=== PATIENT | male | born 1950 | race Two or more races ===

== ENCOUNTER 2023-05-30 01:32 | Inpatient (IN) | payer OTHER ==
[2023-05-30 02:33] LABS: HEMATOCRIT 28.5 % (35.4-49); HEMOGLOBIN 8.8 GM/dL (11.7-16.9); MEAN CELL VOLUME 80.6 fl (80-96); MEAN PLT VOLUME 7.6 fl (7.5-11.1); PLATELET COUNT 379 10^3/uL (134-434); RBC 3.54 M/mm3 (4.00-5.60); WHITE BLOOD COUNT 23.2 K/mm3 (4.0-10.0)
[2023-05-30 02:39] LABS: INR 1.51 (0.83-1.09); PROTHROMBIN TIME (PATIENT) 17.5 SEC (9.7-13.0)
[2023-05-30 02:42] LABS: ACTIVATED PTT 30.8 SECONDS (25.2-36.5)
[2023-05-30 02:44] LABS: EPI CELLS 8 /uL (0-25.1); HYALINE CASTS 4 /uL (0-3.1); URINE APPEARANCE CLEAR; URINE BACTERIA 4 /uL (0-1359); URINE BILIRUBIN NEGATIVE (NEGATIVE); URINE COLOR YELLOW; URINE GLUCOSE (UA) NEGATIVE (NEGATIVE); URINE KETONE NEGATIVE (NEGATIVE); URINE LEUK ESTERASE NEGATIVE (NEGATIVE); URINE NITRITE NEGATIVE (NEGATIVE); URINE PROTEIN 1+ (NEGATIVE); URINE RBC 28 /uL (0-23.9); URINE UROBILINOGEN 0.2 mg/dL (0.2-1.0); URINE WBC 7 /uL (0-25.8)
[2023-05-30 02:55] LABS: POTASSIUM 3.6 mmol/L (3.5-5.1)
[2023-05-30 02:56] LABS: CALCIUM 8.2 mg/dL (8.5-10.1)
[2023-05-30 02:57] LABS: ALBUMIN 1.7 g/dl (3.4-5.0); BLOOD UREA NITROGEN 49.4 mg/dL (7-18)
[2023-05-30 03:00] LABS: CREATININE 3.2 mg/dL (0.55-1.3)
[2023-05-30 03:02] LABS: BILIRUBIN,TOTAL 0.4 mg/dL (0.2-1); TOT PROT 5.7 g/dl (6.4-8.2)
[2023-05-30 05:25] LABS: ANISOCYTOSIS 3+; MACROCYTOSIS 0; OVALOCYTE 1+; ROULEAU 1+; TARGET CELLS 1+
[2023-05-30] MEDS ORDERED: SODIUM CHLORIDE 0.9% 500 ML INFUS.BAG IV ONE (07:10)
[2023-05-30] MEDS ORDERED: PIPERACILLIN/TAZOB 4.5 GM 4.5 GM in DEXTROSE 5%-WATER 100 ML IVPB ONE (08:35)
[2023-05-30] MEDS ORDERED: ACETAMINOPHEN 1000 MG/100 ML BAG IVPB ONE (10:37)
[2023-05-30] MEDS ORDERED: PIPERACILLIN/TAZOB 4.5 GM 4.5 GM/100 ML BAG IVPB ONE (10:37)
[2023-05-30] MEDS ORDERED: ACETAMINOPHEN INJECTION 100 ML IVPB ONE (10:38)
[2023-05-30] MEDS ORDERED: SODIUM CHLORIDE 250 ML IV PRN (10:51)
[2023-05-30] MEDS ORDERED: EPOETIN ALFA-EPBX 2,000 UNIT/ML VIAL IVPUSH ONE (16:15)
[2023-05-30] MEDS ORDERED: VANCOMYCIN ORAL SOLUTION 125 MG/2.5 ML PO SCH (18:00)
[2023-05-30] MEDS: VANCOMYCIN ORAL SOLUTION 125 MG/2.5 ML GT SCH ×2 (20:05→23:54)
[2023-05-31] MEDS: VANCOMYCIN ORAL SOLUTION 125 MG/2.5 ML GT SCH ×3 (05:15→17:25)
[2023-05-31 10:03] LABS: HEMATOCRIT 27.9 % (35.4-49); HEMOGLOBIN 8.7 GM/dL (11.7-16.9); MCH 25.3 pg (25.7-33.7); MEAN CELL VOLUME 81.6 fl (80-96); MEAN PLT VOLUME 8.1 fl (7.5-11.1); PLATELET COUNT 374 10^3/uL (134-434); RBC 3.42 M/mm3 (4.00-5.60); RDW 19.8 % (11.9-15.9); WHITE BLOOD COUNT 25.9 K/mm3 (4.0-10.0)
[2023-05-31 10:35] LABS: POTASSIUM 3.7 mmol/L (3.5-5.1)
[2023-05-31 10:58] LABS: ANISOCYTOSIS 1+; MACROCYTOSIS 0
[2023-05-31 11:02] LABS: ALBUMIN 1.8 g/dl (3.4-5.0); CALCIUM 8.2 mg/dL (8.5-10.1)
[2023-05-31 11:03] LABS: BLOOD UREA NITROGEN 29.1 mg/dL (7-18); MAGNESIUM 1.7 mg/dL (1.8-2.4)
[2023-05-31 11:06] LABS: CREATININE 2.4 mg/dL (0.55-1.3); PHOSPHOROUS 3.8 mg/dL (2.5-4.9)
[2023-05-31 11:07] LABS: BILIRUBIN,TOTAL 0.4 mg/dL (0.2-1); TOT PROT 5.8 g/dl (6.4-8.2)
[2023-05-31] MEDS ORDERED: oxyCODONE HCL 5 MG TABLET PEG PRN (13:05)
[2023-05-31] MEDS: INSULIN ASPART SLIDING SCALE (NOVOLOG) 1 VIAL SQ SCH ×2 (16:46→22:08)
[2023-05-31] MEDS: ATORVASTATIN CA 40 MG TABLET (FP) GT SCH (21:33)
[2023-05-31] MEDS: MELATONIN 1 MG TABLET GT SCH (21:33)
[2023-05-31] MEDS: traZODone HCL 50 MG TABLET (FP) PEG SCH (21:33)
[2023-05-31 21:56] VITALS: BMI 20.6
[2023-06-01] MEDS: VANCOMYCIN ORAL SOLUTION 125 MG/2.5 ML GT SCH ×4 (00:05→18:42)
[2023-06-01] MEDS: INSULIN ASPART SLIDING SCALE (NOVOLOG) 1 VIAL SQ SCH ×4 (06:18→21:23)
[2023-06-01] MEDS: amLODIPine BESYLATE 5 MG TABLET (FP) GT SCH (10:00)
[2023-06-01] MEDS ORDERED: TORSEMIDE 40 MG PEG SCH (10:00)
[2023-06-01 10:19] LABS: HEMATOCRIT 28.8 % (35.4-49); HEMOGLOBIN 8.7 GM/dL (11.7-16.9); MCH 24.8 pg (25.7-33.7); MCHC 30.2 g/dl (32.0-35.9); MEAN CELL VOLUME 82.2 fl (80-96); PLATELET COUNT 372 10^3/uL (134-434); RDW 19.1 % (11.9-15.9); WHITE BLOOD COUNT 19.3 K/mm3 (4.0-10.0)
[2023-06-01 10:42] LABS: POTASSIUM 3.5 mmol/L (3.5-5.1)
[2023-06-01 10:51] LABS: ALBUMIN 1.7 g/dl (3.4-5.0); BLOOD UREA NITROGEN 36.3 mg/dL (7-18); CALCIUM 8.3 mg/dL (8.5-10.1)
[2023-06-01 10:55] LABS: CREATININE 2.6 mg/dL (0.55-1.3)
[2023-06-01 10:56] LABS: BILIRUBIN,TOTAL 0.4 mg/dL (0.2-1); TOT PROT 5.5 g/dl (6.4-8.2)
[2023-06-01] MEDS ORDERED: SODIUM CHLORIDE 250 ML IV PRN (11:15)
[2023-06-01] MEDS ORDERED: EPOETIN ALFA-EPBX 2,000 UNIT/ML VIAL IVPUSH ONE (12:00)
[2023-06-01] MEDS: NYSTATIN 500,000 UNITS/5 ML SUSPENSION PO SCH ×2 (12:00→18:42)
[2023-06-01 12:15] LABS: ANISOCYTOSIS 1+; MACROCYTOSIS 0
[2023-06-01] MEDS ORDERED: VANCOMYCIN/WATER FOR INJ (PEG) 1,000 MG/200 ML BAG IVPB ONE (21:00)
[2023-06-01] MEDS: MELATONIN 1 MG TABLET GT SCH (21:50)
[2023-06-01] MEDS: traZODone HCL 50 MG TABLET (FP) PEG SCH (21:50)
[2023-06-01] MEDS: ATORVASTATIN CA 40 MG TABLET (FP) GT SCH (21:50)
[2023-06-01] MEDS: AMPICILLIN NA/SULBACTAM NA 1.5 GM in SODIUM CHLORIDE 100 ML IVPB SCH (23:20)
[2023-06-02] MEDS: VANCOMYCIN ORAL SOLUTION 125 MG/2.5 ML GT SCH ×4 (01:09→18:06)
[2023-06-02] MEDS: NYSTATIN 500,000 UNITS/5 ML SUSPENSION PO SCH ×4 (01:09→17:23)
[2023-06-02] MEDS: INSULIN ASPART SLIDING SCALE (NOVOLOG) 1 VIAL SQ SCH ×3 (06:35→17:20)
[2023-06-02] MEDS: AMPICILLIN NA/SULBACTAM NA 1.5 GM in SODIUM CHLORIDE 100 ML IVPB SCH (10:14)
[2023-06-02] MEDS: amLODIPine BESYLATE 5 MG TABLET (FP) GT SCH (10:14)
[2023-06-02 10:40] LABS: POTASSIUM 3.6 mmol/L (3.5-5.1)
[2023-06-02 10:42] LABS: CALCIUM 7.9 mg/dL (8.5-10.1)
[2023-06-02 10:43] LABS: ALBUMIN 1.6 g/dl (3.4-5.0); BLOOD UREA NITROGEN 17.2 mg/dL (7-18)
[2023-06-02 10:45] LABS: BASO % 0.7 % (0-2.0); EOS % 2.5 % (0-4.5); HEMATOCRIT 28.3 % (35.4-49); HEMOGLOBIN 8.9 GM/dL (11.7-16.9); LYMPH % 3.9 % (8-40); MCH 25.5 pg (25.7-33.7); MCHC 31.3 g/dl (32.0-35.9); MEAN CELL VOLUME 81.3 fl (80-96); MEAN PLT VOLUME 8.1 fl (7.5-11.1); MONO % 4.6 % (3.8-10.2); NEUT % 88.3 % (42.8-82.8); PLATELET COUNT 348 10^3/uL (134-434); RBC 3.49 M/mm3 (4.00-5.60); RDW 19.6 % (11.9-15.9); WHITE BLOOD COUNT 12.7 K/mm3 (4.0-10.0)
[2023-06-02 10:46] LABS: CREATININE 1.9 mg/dL (0.55-1.3)
[2023-06-02 10:47] LABS: BILIRUBIN,TOTAL 0.4 mg/dL (0.2-1); TOT PROT 5.3 g/dl (6.4-8.2)
[2023-06-02] MEDS ORDERED: PIPERACILLIN/TAZOB 3.375 GM 3.375 GM in DEXTROSE 5%-WATER - 50 ML IVPB ONE (15:46)
[2023-06-02 20:57] VITALS: BP 130/63; PULSE 74; TEMP 97.7
[2023-06-02 23:00] VITALS: RESP 18
[2023-06-02] MEDS ORDERED: PIPERACILLIN/TAZOB 2.25 GM 2.25 GM in DEXTROSE 5%-WATER - 50 ML IVPB SCH (23:00)
== END 2023-06-02 21:05 | disposition short-term general hospital (02) | DRG 371 ==
LOC: JER 01:32 → JERBED 04:01 → OBSVTOIN 14:46 → J6S 17:36
PROVIDERS: ADMIT Internal Medicine; ATTEND Internal Medicine
PROC: 5A1D70Z Performance of Urinary Filtration, Intermittent, Less than 6 Hours Per Day (ICD-10-PCS; principal; 2023-05-30)
PROC: 5A1D70Z Performance of Urinary Filtration, Intermittent, Less than 6 Hours Per Day (ICD-10-PCS; 2023-06-01)
DX: A04.72 Enterocolitis due to Clostridium difficile, not specified as recurrent (principal); N18.6 End stage renal disease; L02.11 Cutaneous abscess of neck; Z68.1 Body mass index [BMI] 19.9 or less, adult; R63.0 Anorexia; B37.89 Other sites of candidiasis; I12.0 Hypertensive chronic kidney disease with stage 5 chronic kidney disease or end stage renal disease; K21.9 Gastro-esophageal reflux disease without esophagitis; E78.5 Hyperlipidemia, unspecified; C06.9 Malignant neoplasm of mouth, unspecified; E11.22 Type 2 diabetes mellitus with diabetic chronic kidney disease; Z93.1 Gastrostomy status; Z99.2 Dependence on renal dialysis
CPT/HCPCS: 36415; 70490-TC; 71045-TC-FY; 74176-TC; 80053; 81003; 82272; 82962; 83735; 83880; 84100; 84484; 85025; 85610; 85730; 86140; 86704; 86803; 87045; 87046; 87070; 87186; 87205; 87209; 87324; 87340; 87449; 87517; 93005; 93010; 99285-25; G0378; Q5106